=== PATIENT | male | born 1990 | race Caucasian/White ===

== ENCOUNTER 2024-07-14 12:52 | Emergency (ER) | payer SELFPAY ==
[~2024-07-14] VITALS: Ht 177.8 cm; Wt 77.0 kg
[2024-07-14 13:07] VITALS: O2SAT 99
[2024-07-14] MEDS: CEPHALEXIN 250MG CAPSULE PO ONE (14:18)
[2024-07-14] MEDS: IBUPROFEN 400MG TABLET PO ONE (14:18)
[2024-07-14] MEDS ORDERED: CEPH500T MT (14:39)
[2024-07-14] MEDS ORDERED: IBUP-2029 MT (14:39)
[2024-07-14 15:10] VITALS: BP 145/87; PULSE 97; RESP 18; TEMP 36.7; O2SAT 100
== END 2024-07-14 15:11 | disposition home or self-care (01) ==
LOC: ER 12:52
DX: L03.119 Cellulitis of unspecified part of limb (principal); J45.909 Unspecified asthma, uncomplicated; E11.9 Type 2 diabetes mellitus without complications
CPT/HCPCS: 73630; 99283